=== PATIENT | male | born 1990 | race Two or more races ===

== ENCOUNTER 2023-08-30 13:08 | Outpatient (AMB) | payer BC, SELFPAY ==
--- NOTE | 2023-08-30 14:07 | AM.OFFWIN_ITS ---
Intake Vital Signs 08/30/23 14:09 Height 5 ft 9 in Weight 74.843 kg BMI 24.4 BP 120/80 Blood Pressure Location Rt brachial Position Sitting Pulse 66 Pulse Source Pulse Oximeter Pulse Oximetry (%) 98 Oxygen Delivery Method Room Air Intake Visit Reasons: [employer]IC [employer] sore throat traveling to ear few days. Intake Note: Patient here for sore throat and pain is now traveling to the left ear. Patient Tobacco Use Status: Current everyday Tobacco user Allergies No Known Allergies Allergy (Verified 08/30/23 14:11) Do you need a note to return to daycare/school/sports/work: Yes HPI HPI Comments History of Present Illness Details 33-year-old male presents with sore thro at and left-sided ear pain for about 5 days. Patient is unable to sleep because of the pain, and has a difficult time swallowing larger bites of food. Patient is able to manage secretions and drink fluids however it is very tender. He does report a prior history of a serious throat infection where he required multiple antibiotics, that was approximately 10 years ago while he was living in [place]. He does report subjective fevers and chills, but denies chest pain or pressure, palpitations, shortness breath, rashes, loss of balance, nausea and vomiting. [facility] Patient Tobacco Use Status: Current everyday Tobacco user Review of Systems Const Details: Constitutional: Positive subjective Fever, positive Chills ENT/Mouth: Positive Ear Pain, No Hoarseness, positive sore throat Eyes: No Eye Pain, No Swelling, No Redness, No Foreign Body Cardiovascular: No Chest Pain, No SOB Respiratory: No Cough, No Dyspnea Gastrointestinal: No Nausea, No Vomiting, No Diarrhea, No abdominal Pain Genitourinary: No Dysuria, No Hematuria Musculoskeletal: No joint pain, No Myalgias, No Joint Swelling Skin: No Skin lacerations, No rash Neuro: No Weakness, No Numbness, No Dizziness, No Headache All systems reviewed & are unremarkable except as noted in HPI and below Physical Exam Vital Signs: Last Vital Signs Pulse 66 08/30/23 14:09 BP 120/80 08/30/23 14:09 Pulse Ox 98 08/30/23 14:09 Oxygen Delivery Method Room Air 08/30/23 14:09 BMI result Body Mass Index 24.4 Appearance: Alert. Oriented X3. No acute distress. Eyes: Pupils equal, round and reactive to light. EOMI. ENT: Pharynx erythematous, with erythematous enlarged tonsils with exudates bilaterally. Left tympanic membranes erythematous, bulging, suppurative without perforation. Right tympanic membrane normal. Canals are intact. no mas toid tenderness noted. Neck: Normal inspection. Neck supple. Anterior and posterior cervical lymphadenopathy noted, bilaterally equal. No nuchal rigidity. No vertebral tenderness. CVS: Normal heart rate and rhythm. Pulses normal. Respiratory: No respiratory distress. Breath sounds normal. Skin: Skin warm and dry. Normal skin color. Normal skin turgor. Extremities: Gait well-balanced well coordinated. Neuro: No motor deficit. No sensory deficit. Cranial nerves 2-12 intact Results AMB Rapid Strep AMB Rapid Strep Negative Last Edit by RUBIO Noe on 08/30/23 14:22 Assessment & Plan Assessment & Plan (1) Otitis media: Code(s): H66.90 - Otitis media, unspecified, unspecified ear (2) Pharyngitis: Code(s): J02.9 - Acute pharyngitis, unspecified Plan: 33-year-old male presents with approximately 1 week sore throat, and left-sided ear pain. Patient's physical exam is consistent with left-sided otitis media and pharyngitis. Patient's strep test is negative however patient's physical exam is consistent with strep pharyngitis he does have bilateral tonsillar swelling and exudate, pharyngeal erythema, Centor scale 3. Left-sided otitis media without perforation, right ear is normal. There is no evidence of epiglottitis or peritonsillar abscess. Patient is afebrile at this time, although reports subjective fevers. Patient has been taking [id number] medications with poor effect, and has a distant history of a severe infection which required multiple antibiotics while he was living in [place] proximally 10 years ago. Considering that this patient has used [id number] medications with poor effect, I do feel that antibiotic is required. Will treat with Augmentin, supportive measures with Tylenol Motrin. Patient verbalized understanding of discharge instructions. Verbalized understandings of signs and symptoms indicating need for emergent intervention. Orders: Orders AMB Rapid Strep Screen Today Z13.9 - Encounter for screening, unspecified Medications: New amoxicillin-pot clavulanate 875-125 mg 1 tab PO Q12H 20 tabs 0RF 10 days Patient Instructions: You were evaluated for 1 week of sore throat and left-sided ear pain. Physical exam is indicative of left otitis media, with pharyngitis. We are treating you with antibiotic for your symptoms. Please take Augmentin 875 mg every 12 hours for the next 7 days. Discard your toothbrush at day 3, and at the completion of your antibiotic course. Alternate Tylenol 650 mg every 6 hours and Motrin 600 mg every 6 hours as needed for pain and fever management. Consider taking these medications 3 hours apart so you have pain and fever management every 3 hours. Write down what time you take these medications to prevent accidental overdose. Motrin is the same medication as Advil and ibuprofen. Tylenol is the same medication as acetaminophen. Thank you for choosing this urgent care for evaluation. Please follow-up with primary care physician as needed. Return to the emergency department for any new, concerning, or worsening symptoms. Coding Level of Care Code Est Pt Level 3 (05608) Diagnoses Otitis media H66.90 Pharyngitis J02.9
[2023-08-30 14:09] VITALS: BP 120/80; PULSE 66; O2SAT 98; BMI 24.4
== END 2023-08-30 14:41 | disposition home or self-care (01) ==
LOC: HO.HMGWI 13:08
DX: H66.90 Otitis media, unspecified, unspecified ear (principal); J02.9 Acute pharyngitis, unspecified; Z13.9 Encounter for screening, unspecified
CPT/HCPCS: 87880; 99051; 99213

== ENCOUNTER 2023-12-29 10:42 | Outpatient (AMB) | payer BC, SELFPAY ==
[2023-12-29 12:47] VITALS: BP 120/80; PULSE 77; TEMP 36.1; O2SAT 98; BMI 24.2
--- NOTE | 2023-12-29 12:47 | MHC.OFFWIV ---
Intake Vital Signs 12/29/23 12:47 Height 5 ft 9 in Weight 164 lb BMI 24.2 BP 120/80 Blood Pressure Location Lt brachial Position Sitting Pulse 77 Pulse Source Pulse Oximeter Temp 97.0 F Temp Source Temporal Artery Scan Pulse Oximetry (%) 98 Oxygen Delivery Method Room Air Intake Visit Reasons: [employer] BLASTING RT knee (lobby) Intake Note: pt is here today for rt knee started 2 weeks ago Patient Tobacco Use Status: Current everyday Tobacco user Allergies No Known Allergies Allergy (Verified 12/29/23 12:50) Do you need a note to return to daycare/school/sports/work: Yes HPI HPI Comments History of Present Illness Details Patient presents to the walk-in today for sick visit Endorses 1.5 weeks of right knee pain, denies inciting injury Reports that he did have significant injury to the right knee about 15 years ago but denies any recent injury Pain is worse with walking and twisting He has not been taking anything for the pain Pain improves with rest Patient works at [employer], states that he must walk long distances and climb stairs which is causing the pain to worsen [facility] Social History Patient Tobacco Use Status: Current everyday Tobacco user Review of Systems Const All systems reviewed & are unremarkable except as noted in HPI and below Physical Exam Vital Signs: Last Vital Signs Temp 97.0 F 12/29/23 12:47 Pulse 77 12/29/23 12:47 BP 120/80 12/29/23 12:47 Pulse Ox 98 12/29/23 12:47 Oxygen Delivery Method Room Air 12/29/23 12:47 BMI result Body Mass Index 24.2 General: awake, alert, oriented. Answers questions appropriately. Fully engaged in examination. Skin: warm, dry, intact HEENT: Normocephalic. Hearing intact. Cardiac: External chest normal in appearance. Respiratory: No cough, audible wheezing or stridor. Abdomen: without gross distension. MS: No obvious swelling or deformities. Right knee: Limited range of motion, unable to fully extend due to pain. Tenderness along lateral joint line. Neurological: Oriented to person, place, time and situation. Thought process intact. Psychiatric: Appropriate mood and affect. Good judgment and insight. Results Reviewed Results Reviewed: Right knee x-ray ordered and independently reviewed: Negative for fracture or dislocation Assessment & Plan Assessment & Plan (1) Strain of right knee: Code(s): S86.911A - Strain of unspecified muscle(s) and tendon(s) at lower leg level, right leg, initial encounter Plan Right knee x-ray: Negative for fracture dislocation Knee brace applied, crutches given. Patient educated on use. Referral placed for Orthopedics, patient aware they will call to schedule appointment Diclofenac 50 mg p.o. twice daily as needed, patient advised on cautions for use Follow-up with primary care doctor or return here for any new or worsening symptoms Orders: Referrals Orthopedics Referral M25.561 - Pain in right knee Medications: New diclofenac potassium 50 mg PO BID 30 tabs 0RF Coding Level of Care Code New Pt Level 4 (57213) Diagnoses Strain of right knee S86.481Z
== END 2023-12-29 14:45 | disposition home or self-care (01) ==
PROVIDERS: Visit Provider Registered Nurse Emergency
DX: S86.911A Strain of unspecified muscle(s) and tendon(s) at lower leg level, right leg, initial encounter (principal)
CPT/HCPCS: 99204

== ENCOUNTER 2023-12-29 13:15 | Outpatient (REF) | payer BC, SELFPAY ==
--- NOTE | ~2023-12-29 | XR_ITS ---
EXAMINATION: XR knee RT 4V CLINICAL INFORMATION: Reason for Exam M25.561 - Pain in right knee COMPARISON: None available at the time of this dictation. TECHNIQUE: Frontal lateral oblique views 4 views. FINDINGS: BONES: There is a small cortical bony defect in the articular surface of the lateral femoral condyle roughly 1.3 x 0.4 cm raising suspicion for possible osteochondritis dissecans. This diagnosis can better visualized with MRI. All other bones appear normal intact. JOINTS: Joint spaces are preserved. No joint effusion. SOFT TISSUE: Normal XR/XR knee RT 4V IMPRESSION: * Small cortical bony defect in the articular surface of the lateral femoral condyle raising suspicion for possible osteochondritis dissecans. This diagnosis can be visualized and made utilizing MRI if clinically indicated. * No joint effusion.
== END 2023-12-29 13:16 | disposition home or self-care (01) ==
LOC: HO.HMGCX 13:15
PROVIDERS: Visit Provider Registered Nurse Emergency
DX: M25.561 Pain in right knee (principal)
CPT/HCPCS: 73564

== ENCOUNTER 2024-01-07 10:14 | Outpatient (REF) | payer BC, SELFPAY | END 2024-01-07 10:15 | disposition home or self-care (01) | LOC: HO.HOSX 10:14 | PROVIDERS: Visit Provider Physician Assistant | DX: Z13.89 Encounter for screening for other disorder (principal) ==